=== PATIENT | male | born 1960 | race Caucasian/White ===

== ENCOUNTER 2018-11-04 10:49 | Observation (INO) | payer BC ==
[2018-11-04] MEDS ORDERED: metroNIDAZOLE/Normal Saline 500 MG in Premix Bag 1 BAG IV ONE (11:43)
[2018-11-04] MEDS ORDERED: cefTRIAXone 2 GM in Sodium Chloride 0.9% 100 ML IV SCH (11:45)
[2018-11-04] MEDS ORDERED: Metoclopramide 10 MG/2 ML SDV IVPUSH ONE (11:49)
--- NOTE | 2018-11-04 12:06 | PCM.HP ---
H&P History of Present Illness - General Date of Service: 11/04/18 Admit Problem/Dx: Admission Diagnosis/Problem Admission Diagnosis/Problem Appendicitis Source of Information: Patient, Provider - History of Present Illness Initial Comments - Free Text/Narative: The patient is a 57 y/o gentleman who presents with 5 days of RLQ pain. He was seen by his PCP yesterday, and CT scan was done today revealing findings of acute appendicitis. Lab work done by the PCP reveals elevated WBC with neutrophil predominance and elevated CRP.He has had some loose stools since the CT scan. He denies any fever/chills, any nausea or vomiting, any hematochezia or melena. Right Lower Abdomen Pain Score (Numeric/FACES): 3 - Related Data Allergies/Adverse Reactions: Allergies Allergy/AdvReac Type Severity Reaction Status Date / Time Penicillins Allergy Hives Verified 03/21/16 22:38 Home Medications: Home Meds Aspirin [Ecotrin] 325 mg PO DAILY 03/21/16 [History] Cyanocobalamin (Vitamin B12) [Vitamin B12] 1,000 mcg PO DAILY 03/21/16 [History] Insulin Aspart [Novolog] 15 unit SQ TID 03/21/16 [History] Insulin Detemir [Levemir] 58 unit SUBCUT DAILY 03/21/16 [History] Lisinopril [Zestril] 10 mg PO DAILY 03/21/16 [History] atorvaSTATin [Lipitor] 20 mg PO DAILY 03/21/16 [History] metFORMIN HCl [Metformin HCl] 1,000 mg PO BID 03/21/16 [History] Cholecalciferol (Vitamin D3) [Vitamin D3] 10,000 unit PO DAILY 11/04/18 [History ] Dulaglutide [Trulicity] 1.5 mg INJECT VICENTE 11/04/18 [History] Magnesium 400 mg PO DAILY 11/04/18 [History] Multivitamin [Multivitamins] 1 cap PO DAILY 11/04/18 [History] Past Medical History Cardiovascular History: Reports: High Cholesterol, Hypertension Respiratory History: Reports: PE, Sleep Apnea Endocrine/Metabolic History: Reports: Diabetes, Type II Hematologic History: Reports: Other (See Below) Other Hematologic History: Factor V Leiden - Past Surgical History HEENT Surgical History: Reports: Eye Surgery Social & Family History - Family History Cardiac: Reports: NM Oncologic: Reports: Other (See Below) Other Oncologic Family History: melanoma - Tobacco Use Smoking Status *Q: Never Smoker - Caffeine Use Caffeine Use: Reports: Coffee, Soda, Tea - Recreational Drug Use Recreational Drug Use: No H&P Review of Systems - Review of Systems: Review Of Systems: See Below General: Reports: No Symptoms HEENT: Reports: No Symptoms Pulmonary: Reports: No Symptoms Cardiovascular: Reports: No Symptoms Gastrointestinal: Reports: Abdominal Pain. Denies: Hematochezia, Melena Genitourinary: Reports: No Symptoms Musculoskeletal: Reports: No Symptoms Skin: Reports: No Symptoms Psychiatric: Reports: No Symptoms Neurological: Reports: No Symptoms Exam - Exam Exam: See Below - Vital Signs Vital Signs: Last Vital Signs Temp 36.2 C 11/04/18 11:04 Pulse 103 H 11/04/18 11:04 Resp 20 11/04/18 11:04 BP 152/94 H 11/04/18 11:04 Pulse Ox 96 11/04/18 11:04 Weight: 104.326 kg - Exam Quality Assessment: No: Supplemental Oxygen General: Alert, Oriented HEENT: Conjunctiva Clear, EOMI Neck: Supple Lungs: Clear to Auscultation, Normal Respiratory Effort Cardiovascular: Regular Rate, Regular Rhythm GI/Abdominal Exam: Soft, Guarding (localized), Rebound (in RLQ), Tender (in RLQ) Extremities: Normal Inspection, No Pedal Edema Peripheral Pulses: 2+: Dorsalis Pedis (L), Dorsalis Pedis (R) Skin: Warm, Dry, Intact Neurological: Cranial Nerves Intact Neuro Extensive - Mental Status: Alert, Oriented x3, Normal Mood/Affect *Q Meaningful Use (ADM) - VTE Risk Assess *Q Each Risk Factor Represents 1 Point: Age 41 - 59 years, Minor Surgery Planned Total Score 1 Point Risk Factors: 2 Each Risk Factor Represents 3 Points: Positive factor V Leiden Total Score 3 Point Risk Factors: 3 - Problem List (1) Acute appendicitis SNOMED Code(s): 57913371 ICD Code: K35.80 - UNSPECIFIED ACUTE APPENDICITIS Status: Acute Current Visit: Yes Problem List Initiated/Reviewed/Updated: Yes Orders Last 24hrs: Active Orders 24 hr Category Date Time Status Admission Status [Patient Status] [ADT] Routine ADT 11/04/18 11:46 Active EKG 12 Lead [EKG Documentation Completion] [RC] STAT Care 11/04/18 11:39 Active cefTRIAXone [Rocephin] 2 gm Med 11/04/18 11:45 Active Sodium Chloride 0.9% [Normal Saline] 100 ml IV Q24H metroNIDAZOLE/Normal Saline [Flagyl 500 MG in NS 100 ML Med 11/04/18 11:43 Active ] 500 mg Premix Bag 1 bag IV ONETIME Schedule Procedure [COMM] Routine Oth 11/04/18 11:47 Ordered Medication Orders Ceftriaxone Sodium 2 gm/ (Sodium Chloride) 100 mls @ 200 mls/hr IV Q24H REYNA Metronidazole 500 mg/ Premix 100 mls @ 100 mls/hr IV ONETIME ONE Stop: 11/04/18 12:42 Assessment/Plan Comment:: 57 y/o man with acute appendicitis - plan for laparoscopic appendectomy, possible open - ceftriaxone 2g IV and metronidazole 500mg IV x1 now - will give 5000U subq heparin for history of VTE and known factor V Leiden - plan for admission will be determined by intraoperative findings Rossy Catherine MD General surgery
--- NOTE | 2018-11-04 12:12 | PCM.PREANE ---
Preanesthetic Assessment - Procedure Proposed Procedure: lap appy - Anesthesia/Transfusion/Family Hx Anesthesia History: Prior Anesthesia Without Reaction Family History of Anesthesia Reaction: No Transfusion History: No Prior Transfusion(s) - Review of Systems General: No Symptoms Pulmonary: No Symptoms Cardiovascular: No Symptoms Gastrointestinal: Abdominal Pain (5 days on and off) Neurological: No Symptoms Other: Reports: Diabetes - Physical Assessment NPO Status Date: 11/04/18 NPO Status Time: 10:00 (eggs, ham, toast hash browns coffee) O2 Sat by Pulse Oximetry: 96 Respiratory Rate: 20 Vital Signs: Last Vital Signs Temp 97.2 F 11/04/18 11:04 Pulse 103 H 11/04/18 11:04 Resp 20 11/04/18 11:04 BP 152/94 H 11/04/18 11:04 Pulse Ox 96 11/04/18 11:04 Height: 5 ft 9 in Weight: 104.326 kg ASA Class: 2E Mental Status: Alert & Oriented x3 Airway Class: Mallampati = 2 Dentition: Reports: Broken Tooth/Teeth, Missing Tooth/Teeth Thyro-Mental Finger Breadths: 2 Mouth Opening Finger Breadths: 3 ROM/Head Extension: Full Lungs: Clear to Auscultation, Normal Respiratory Effort Cardiovascular: Regular Rate, Regular Rhythm - Allergies Allergies/Adverse Reactions: Allergies Allergy/AdvReac Type Severity Reaction Status Date / Time Penicillins Allergy Hives Verified 03/21/16 22:38 - Blood Blood Available: No - Acknowledgements Anesthesia Type Planned: General Anesthesia Pt an Appropriate Candidate for the Planned Anesthesia: Yes Alternatives and Risks of Anesthesia Discussed w Pt/Guardian: Yes Pt/Guardian Understands and Agrees with Anesthesia Plan: Yes PreAnesthesia Questionnaire HEENT History: Reports: Other (See Below) (glasses) Cardiovascular History: Reports: High Cholesterol, Hypertension Respiratory History: Reports: PE (2007), Sleep Apnea Gastrointestinal History: Reports: Other (See Below) (gas build up) Endocrine/Metabolic History: Reports: Diabetes, Type II, Obesity/BMI 30+ Oncologic (Cancer) History: Reports: None - Past Surgical History HEENT Surgical History: Reports: Eye Surgery, Tonsillectomy GI Surgical History: Reports: Colonoscopy - SUBSTANCE USE Smoking Status *Q: Never Smoker Tobacco Use Within Last Twelve Months: No Second Hand Smoke Exposure: No Days Per Week of Alcohol Use: 1 Number of Drinks Per Day: 1 Total Drinks Per Week: 1 Recreational Drug Use History: No - HOME MEDS Home Medications: Home Meds Aspirin [Ecotrin] 325 mg PO DAILY 03/21/16 [History] Cyanocobalamin (Vitamin B12) [Vitamin B12] 1,000 mcg PO DAILY 03/21/16 [History] Insulin Aspart [Novolog] 15 unit SQ TID 03/21/16 [History] Insulin Detemir [Levemir] 58 unit SUBCUT DAILY 03/21/16 [History] Lisinopril [Zestril] 10 mg PO DAILY 03/21/16 [History] atorvaSTATin [Lipitor] 20 mg PO DAILY 03/21/16 [History] metFORMIN HCl [Metformin HCl] 1,000 mg PO BID 03/21/16 [History] Cholecalciferol (Vitamin D3) [Vitamin D3] 10,000 unit PO DAILY 11/04/18 [History ] Dulaglutide [Trulicity] 1.5 mg INJECT VICENTE 11/04/18 [History] Magnesium 400 mg PO DAILY 11/04/18 [History] Multivitamin [Multivitamins] 1 cap PO DAILY 11/04/18 [History] - CURRENT (IN HOUSE) MEDS Current Meds: Current Medications Ceftriaxone Sodium 2 gm/ (Sodium Chloride) 100 mls @ 200 mls/hr IV Q24H REYNA Last Admin: 11/04/18 12:00 Dose: 200 mls/hr Metronidazole 500 mg/ Premix 100 mls @ 100 mls/hr IV ONETIME ONE Stop: 11/04/18 12:42 Last Admin: 11/04/18 12:03 Dose: 100 mls/hr Discontinued Medications Metoclopramide HCl (Reglan) 10 mg IVPUSH ONETIME ONE Stop: 11/04/18 11:50 Last Admin: 11/04/18 12:00 Dose: 10 mg
[2018-11-04] MEDS ORDERED: Heparin Sodium 5,000 Units/ML Vial SUBCUT ONE (12:19)
[2018-11-04] MEDS ORDERED: Propofol 200 MG/20 ML SDV ONE (12:24)
[2018-11-04] MEDS ORDERED: fentaNYL 250 MCG/5 ML SDV ONE (12:24)
[2018-11-04] MEDS ORDERED: Midazolam 1 MG/ML 2 ML SDV ONE (12:25)
[2018-11-04] MEDS ORDERED: Succinylcholine/Normal Saline 100 MG/5 ML Syringe ONE (12:26)
[2018-11-04] MEDS ORDERED: Ondansetron 4 MG/2 ML SDV ONE (12:26)
[2018-11-04] MEDS ORDERED: Rocuronium 50 MG/5 ML Vial ONE (12:26)
[2018-11-04] MEDS ORDERED: Lidocaine 1% 4 ML ONE (12:26)
[2018-11-04] MEDS ORDERED: Lidocaine 1% with EPINEPHrine 1:100,000 20 ML MDV ONE (12:27)
[2018-11-04] MEDS ORDERED: Bupivacaine 0.5%/EPINEPHrine 1:200,000 50 ML MDV ONE (12:27)
[2018-11-04] MEDS ORDERED: Neostigmine Methylsulfate 1 MG/ML 5 ML Syringe ONE (12:27)
[2018-11-04] MEDS ORDERED: Levofloxacin/Dextrose 5%-Water 750 MG in Premix Bag 1 BAG IV SCH (12:30)
[2018-11-04] MEDS ORDERED: HYDROmorphone 0.5 MG/0.5 ML Syringe IVPUSH PRN (12:51)
[2018-11-04] MEDS ORDERED: Ondansetron 4 MG/2 ML SDV IVPUSH PRN ×2 (12:51→15:29)
[2018-11-04] MEDS ORDERED: fentaNYL 100 MCG/2 ML SDV IVPUSH PRN (12:51)
[2018-11-04] MEDS ORDERED: HYDROmorphone 0.5 MG/0.5 ML Syringe ONE (13:01)
[2018-11-04] MEDS ORDERED: Acetaminophen/HYDROcodone 325-5 MG Tab PO PRN (14:09)
[2018-11-04] MEDS ORDERED: HYDROmorphone 1 MG/ML Syringe IVPUSH PRN (14:09)
--- NOTE | 2018-11-04 14:19 | PCM.PRNOTE ---
- Free Text/Narrative Note: Operative Report Date of surgery: November 04, 2018 Preoperative diagnosis: acute appendicitis Postoperative diagnosis: same Procedure performed: laparoscopic appendectomy Surgeon: Dr. Rossy Catherine Anesthesia: General Landscape Artist: Richard Mark CRNA Estimated blood loss 10 mL IV fluids: 1000 mL Urine output: 0 Drains and lines: None Findings: . Perforated appendix with localized abscess Pathology: Appendix Indications for procedure: The patient is a 57-year-old male who presented with a five-day history of right lower quadrant abdominal pain. He was originally seen by his primary care provider who ordered the outpatient laboratory work and CT scan. CT resulted findings of acute appendicitis with localized perforation, as well as well as findings on laboratory work of mildly elevated white blood cell count and left shift. He was brought to the emergency department where he was seen and evaluated. He was consented for laparoscopic appendectomy with possible conversion to open. Risks of infection, bleeding, and bowel injury were described. His written consent was obtained. Description of procedure: The patient was taken back to the operating room and placed in supine position on the operating table. SCD boots were in place and functional prior to the start of the procedure. Preoperative antibiotics were administered. The patient had successful induction of general anesthesia and was intubated without difficulty. Pt was then prepped and draped in standard surgical fashion and a timeout was performed. We began by making a 15 mm incision in the infraumbilical skin and deepened down to level of the fascia which was then grasped and incised sharply. We entered the peritoneum and then placed stay sutures of 0 Vicryl on the fascial edges. A 12 mm Blackman port was then placed into the umbilicus and the balloon was inflated. The abdomen was insufflated to 15 mmHg a 5 mm camera was inserted. There was no evidence of any injury created from entry into the abdomen. A TA P block was performed using mixed 1% lidocaine with epinephrine and 0.5% bupivacaine with epinephrine . We then proceeded to place a 5 mm port under direct visualization in the suprapubic midline and an additional 5mm port in the left lower quadrant. The patient was then positioned in Trendelenburg with right side elevated and we proceeded to mobilize the appendix. The appendix was very indurated and firmly adherent to the abdominal wall. The neighboring terminal ileum was also inflamed and had become incorporated with inflammatory adhesion. Blunt dissection was used to separate the appendix away from the surrounding structures. During this time, we did encounter a small localized collection of pus, which was evacuated using the suction. There was no additional fluid in the abdomen. The appendix was then grasped and with blunt dissection was brought into the surgical field. The mesoappendix dissected from the appendix using the LigaSure device. The appendix was then taken with a tissue staple load. The specimen was in place in the Endo Catch bag. We then inspected and suctioned up any blood in the area. There was no active bleeding at the end of this case. The abdomen was then desufflated and the umbilical fascia closed with 0 Vicryl sutures and the stay sutures were tied, effectively closing the umbilical port site. The skin was then reapproximated at all port sites using a 4-0 Monocryl subcutaneous stitch and covered with Dermabond surgical glue. The patient tolerated the procedure. He was extubated and transported to the PACU in stable condition. All sponge and needle counts were correct. I was present and scrubbed for the entirety of the procedure. Rossy Catherine MD General Surgery
--- NOTE | 2018-11-04 14:20 | PCM.OPNOTE ---
- General Post-Op/Procedure Note Date of Surgery/Procedure: 11/04/18 Operative Procedure(s): laparoscopic appendectomy Findings: perforated appendix with localized abscess Pre Op Diagnosis: acute appendicitis Post-Op Diagnosis: acute appendicitis Anesthesia Technique: General ET Tube Primary Surgeon: Rossy Catherine Anesthesia Provider: Richard Mark Pathology: appendix Fluid Replacement, Intraop: 1,000 Output, Urine Amount: 0 EBL in mLs: 10 Complications: none apparent Condition: Good
--- NOTE | 2018-11-04 14:50 | PCM.POSTAN ---
POST ANESTHESIA ASSESSMENT - MENTAL STATUS Mental Status: Alert, Oriented - VITAL SIGNS Pulse Rate: 107 SaO2: 92 Resp Rate: 16 Blood Pressure: 144/99 Temperature: 36.2 C - RESPIRATORY Respiratory Status: Respiratory Rate WNL, Airway Patent, O2 Saturation Stable, Supplemental Oxygen - CARDIOVASCULAR CV Status: Pulse Rate WNL, Blood Pressure Stable - GASTROINTESTINAL GI Status: No Symptoms - PAIN Pain Score: 0 - POST OP HYDRATION Hydration Status: Adequate & Stable
[2018-11-04] MEDS: Heparin Sodium 5,000 Units/ML Vial SUBCUT SCH (20:37)
[2018-11-04] MEDS: Ibuprofen 600 MG Tab PO PRN (20:38)
[2018-11-04] MEDS: metroNIDAZOLE/Normal Saline 500 MG in Premix Bag 1 BAG IV SCH (20:38)
[2018-11-04] MEDS: D5 1/2 NS w/ 20 mEq/L KCl 1,000 ML IV SCH (20:40)
[2018-11-04] MEDS ORDERED: metFORMIN 500 MG Tab PO SCH (21:00)
[2018-11-04] MEDS: Insulin Lispro 100 UNIT/ML 10 ML VIAL SUBCUT SCH (22:23)
[2018-11-05] MEDS: D5 1/2 NS w/ 20 mEq/L KCl 1,000 ML IV SCH (04:43)
[2018-11-05] MEDS: metroNIDAZOLE/Normal Saline 500 MG in Premix Bag 1 BAG IV SCH ×2 (04:44→11:12)
[2018-11-05] MEDS: Heparin Sodium 5,000 Units/ML Vial SUBCUT SCH ×2 (04:45→12:32)
[2018-11-05] MEDS: Ibuprofen 600 MG Tab PO PRN ×2 (04:48→12:33)
[2018-11-05] MEDS ORDERED: Insulin Glarg,Human.Rec.Analog 100 UNIT/ML ML SUBCUT SCH (09:00)
[2018-11-05] MEDS ORDERED: Cholecalciferol (Vitamin D3) 5,000 UNIT Tab PO SCH (09:00)
[2018-11-05] MEDS ORDERED: Lisinopril 10 MG Tab PO SCH (09:00)
[2018-11-05] MEDS ORDERED: Simvastatin 20 MG Tab PO SCH (09:00)
[2018-11-05] MEDS ORDERED: Aspirin 325 MG Tab.EC PO SCH (09:00)
[2018-11-05] MEDS ORDERED: Multivitamins,Therapeutic Tab PO SCH (09:00)
[2018-11-05] MEDS ORDERED: Cyanocobalamin (Vitamin B12) 1,000 MCG Tab PO SCH (09:00)
[2018-11-05] MEDS ORDERED: Magnesium Oxide 400 MG Tab PO SCH (09:00)
[2018-11-05] MEDS: Insulin Lispro 100 UNIT/ML 10 ML VIAL SUBCUT SCH ×2 (09:31→16:05)
[2018-11-05] MEDS ORDERED: cefTRIAXone 2 GM in Sodium Chloride 0.9% 100 ML IV SCH (12:00)
[2018-11-05 13:01] VITALS: BP 134/80
--- NOTE | 2018-11-05 15:49 | PCM.SURGPN ---
- General Info Date of Service: 11/05/18 POD#: 1 Functional Status: Reports: Pain Controlled, Tolerating Diet, Ambulating, Urinating, Other (required straight cath x1 overnight) - Patient Data Vitals - Most Recent: Last Vital Signs Temp 37.5 C 11/05/18 12:23 Pulse 110 H 11/05/18 13:01 Resp 22 H 11/05/18 12:23 BP 134/80 11/05/18 13:01 Pulse Ox 90 L 11/05/18 12:23 Weight - Most Recent: 104.581 kg I&O - Last 24 Hours: Intake & Output 11/05/18 11/05/18 11/05/18 06:59 14:59 22:59 Intake Total 2300 2371 Output Total 1700 1850 Balance 600 521 Lab Results Last 24 Hrs: Laboratory Results - last 24 hr 11/04/18 11/05/18 11/05/18 Range/Units 20:54 06:44 11:08 POC Glucose 268 H 231 H 223 H (70-105) mg/dL Med Orders - Current: Current Medications Hydrocodone Bitart/Acetaminophen (Carmel 325-5 Mg) 1 tab PO Q4H PRN PRN Reason: Pain (moderate 4-6) Aspirin (Ecotrin) 325 mg PO DAILY [facility] Last Admin: 11/05/18 09:29 Dose: 325 mg Cyanocobalamin (Vitamin B12) 1,000 mcg PO DAILY [facility] Last Admin: 11/05/18 09:29 Dose: 1,000 mcg Heparin Sodium (Porcine) (Heparin Sodium) 5,000 units SUBCUT Q8H [facility] Last Admin: 11/05/18 12:32 Dose: 5,000 units Hydromorphone HCl (Dilaudid) 0.5 mg IVPUSH Q3H PRN PRN Reason: Breakthrough Pain Potassium Chloride/Dextrose/Sod Cl (D5 1/2 Ns W/ 20 Meq/L Kcl) 1,000 mls @ 125 mls/hr IV ASDIRECTED [facility] Last Admin: 11/05/18 04:43 Dose: 125 mls/hr Metronidazole 500 mg/ Premix 100 mls @ 100 mls/hr IV Q8H [facility] Stop: 11/06/18 12:59 Last Admin: 11/05/18 11:12 Dose: 100 mls/hr Ceftriaxone Sodium 2 gm/ (Sodium Chloride) 100 mls @ 200 mls/hr IV Q24H [facility] Stop: 11/06/18 12:29 Last Admin: 11/05/18 12:33 Dose: 200 mls/hr Ibuprofen (Motrin) 600 mg PO Q6H PRN PRN Reason: Pain (mild 1-3) Last Admin: 11/05/18 12:33 Dose: 600 mg Insulin Glargine (Lantus) 58 unit SUBCUT DAILY [facility] Last Admin: 11/05/18 09:33 Dose: 58 units Insulin Human Lispro (Humalog) 15 unit SUBCUT TID [facility] Last Admin: 11/05/18 09:31 Dose: 15 units Lisinopril (Prinivil) 10 mg PO DAILY [facility] Last Admin: 11/05/18 09:29 Dose: 10 mg Magnesium Oxide (Magnesium Oxide) 400 mg PO DAILY [facility] Last Admin: 11/05/18 09:29 Dose: 400 mg Metformin HCl (Glucophage) 1,000 mg PO BIDMEALS [facility] Multivitamins (Thera) 1 each PO DAILY [facility] Last Admin: 11/05/18 09:29 Dose: 1 each Ondansetron HCl (Zofran) 4 mg IVPUSH Q6H PRN PRN Reason: Nausea/Vomiting Dulaglutide [ Trulicity] 1.5 Mg Ptom 0 each SUBCUT VICENTE [facility] Simvastatin (Zocor) 20 mg PO DAILY [facility] Last Admin: 11/05/18 09:00 Dose: 20 mg Discontinued Medications Bupivacaine HCl/Epinephrine Bitart (Marcaine 0.5%/Epinephrine 1:200,000) Confirm Administered Dose 50 ml .ROUTE .STK-MED ONE Stop: 11/04/18 12:28 Last Admin: 11/04/18 12:50 Dose: 30 ml Cholecalciferol (Vitamin D3) 10,000 unit PO DAILY [facility] Last Admin: 11/05/18 09:00 Dose: 10,000 unit Fentanyl (Sublimaze) Confirm Administered Dose 250 mcg .ROUTE .STK-MED ONE Stop: 11/04/18 12:25 Fentanyl (Sublimaze) 50 mcg IVPUSH Q5M PRN PRN Reason: Pain Stop: 11/04/18 15:00 Glycopyrrolate () Confirm Administered Dose 1 mg .ROUTE .STK-MED ONE Stop: 11/04/18 12:28 Heparin Sodium (Porcine) (Heparin Sodium) 5,000 units SUBCUT ONETIME ONE Stop: 11/04/18 12:20 Last Admin: 11/04/18 12:28 Dose: 5,000 units Hydromorphone HCl (Dilaudid) 0.5 mg IVPUSH Q10M PRN PRN Reason: Pain (severe 7-10) Stop: 11/04/18 16:00 Hydromorphone HCl (Dilaudid) Confirm Administered Dose 0.5 mg .ROUTE .STK-MED ONE Stop: 11/04/18 13:02 Ceftriaxone Sodium 2 gm/ (Sodium Chloride) 100 mls @ 200 mls/hr IV Q24H [facility] Last Admin: 11/04/18 12:00 Dose: 200 mls/hr Metronidazole 500 mg/ Premix 100 mls @ 100 mls/hr IV ONETIME ONE Stop: 11/04/18 12:42 Last Admin: 11/04/18 12:03 Dose: 100 mls/hr Levofloxacin/Dextrose 750 mg/ (Premix) 150 mls @ 100 mls/hr IV Q24H [facility] Stop: 11/05/18 13:59 Lidocaine HCl (Xylocaine-Mpf 1%) Confirm Administered Dose 4 mls @ as directed .ROUTE .STK-MED ONE Stop: 11/04/18 12:27 Lidocaine/Epinephrine (Xylocaine 1% With Epinephrine 1:100,000) Confirm Administered Dose 40 ml .ROUTE .STK-MED ONE Stop: 11/04/18 12:28 Last Admin: 11/04/18 12:50 Dose: 30 ml Metformin HCl (Glucophage) 1,000 mg PO BID [facility] Last Admin: 11/04/18 20:50 Dose: Not Given Metoclopramide HCl (Reglan) 10 mg IVPUSH ONETIME ONE Stop: 11/04/18 11:50 Last Admin: 11/04/18 12:00 Dose: 10 mg Midazolam HCl (Versed 1 Mg/Ml) Confirm Administered Dose 2 mg .ROUTE .STK-MED ONE Stop: 11/04/18 12:26 Neostigmine Methylsulfate (Neostigmine) Confirm Administered Dose 5 mg .ROUTE .STK-MED ONE Stop: 11/04/18 12:28 Ondansetron HCl (Zofran) Confirm Administered Dose 4 mg .ROUTE .STK-MED ONE Stop: 11/04/18 12:27 Ondansetron HCl (Zofran) 4 mg IVPUSH ONETIME PRN PRN Reason: Nausea/Vomiting Stop: 11/04/18 16:00 Propofol (Diprivan 20 Ml) Confirm Administered Dose 200 mg .ROUTE .STK-MED ONE Stop: 11/04/18 12:25 Rocuronium [place] (Zemuron) Confirm Administered Dose 50 mg .ROUTE .STK-MED ONE Stop: 11/04/18 12:27 Succinylcholine Chloride (Succinylcholine In Ns Pf) Confirm Administered Dose 100 mg .ROUTE .STK-MED ONE Stop: 11/04/18 12:27 - Exam Wound/Incisions: Healing Well, Dressing Dry and Intact, Erythema General: Alert, Oriented Lungs: Normal Respiratory Effort GI/Abdominal Exam: Soft, Tender (appropriately tender in the RLQ) - Problem List & Annotations (1) Acute appendicitis SNOMED Code(s): 49692755 Code(s): K35.80 - UNSPECIFIED ACUTE APPENDICITIS Status: Acute Current Visit: Yes - Problem List Review Problem List Initiated/Reviewed/Updated: Yes - My Orders Last 24 Hours: Active Orders 24 hr Category Date Time Status Ready for Discharge [RC] PER UNIT ROUTINE Care 11/05/18 14:01 Active Urinary Catheter Insertion [Insert Urinary Catheter] [ Care 11/04/18 22:45 Ordered OM.PC] Q24H Regular Diet [DIET] Diet 11/04/18 Dinner Active Aspirin [Ecotrin] Med 11/05/18 09:00 Active 325 mg PO DAILY Cyanocobalamin (Vitamin B12) [Vitamin B12] Med 11/05/18 09:00 Active 1,000 mcg PO DAILY Heparin Sodium Med 11/04/18 20:00 Active 5,000 units SUBCUT Q8H Insulin Glarg,Human.Rec.Analog [LantUS] Med 11/05/18 09:00 Active 58 unit SUBCUT DAILY Insulin Lispro [HumaLOG] Med 11/04/18 21:00 Active 15 unit SUBCUT TID Lisinopril [Prinivil] Med 11/05/18 09:00 Active 10 mg PO DAILY Magnesium Oxide Med 11/05/18 09:00 Active 400 mg PO DAILY Multivitamins,Therapeutic [Thera] Med 11/05/18 09:00 Active 1 each PO DAILY Ondansetron [Zofran] Med 11/04/18 15:29 Active 4 mg IVPUSH Q6H PRN Patient's Own Medication [Ptom] Med 11/08/18 14:16 Active 0 each SUBCUT VICENTE Simvastatin [Zocor] Med 11/05/18 09:00 Active 20 mg PO DAILY cefTRIAXone [Rocephin] 2 gm Med 11/05/18 12:00 Active Sodium Chloride 0.9% [Normal Saline] 100 ml IV Q24H metFORMIN [Glucophage] Med 11/06/18 09:30 Active 1,000 mg PO BIDMEALS metroNIDAZOLE/Normal Saline [Flagyl 500 MG in NS 100 ML Med 11/04/18 20:00 Active ] 500 mg Premix Bag 1 bag IV Q8H Resuscitation Status Routine Resus Stat 11/04/18 16:08 Ordered Medication Orders Hydrocodone Bitart/Acetaminophen (Carmel 325-5 Mg) 1 tab PO Q4H PRN PRN Reason: Pain (moderate 4-6) Aspirin (Ecotrin) 325 mg PO DAILY [facility] Last Admin: 11/05/18 09:29 Dose: 325 mg Cyanocobalamin (Vitamin B12) 1,000 mcg PO DAILY [facility] Last Admin: 11/05/18 09:29 Dose: 1,000 mcg Heparin Sodium (Porcine) (Heparin Sodium) 5,000 units SUBCUT Q8H [facility] Last Admin: 11/05/18 12:32 Dose: 5,000 units Admin: 11/05/18 04:45 Dose: 5,000 units Admin: 11/04/18 20:37 Dose: 5,000 units Hydromorphone HCl (Dilaudid) 0.5 mg IVPUSH Q3H PRN PRN Reason: Breakthrough Pain Potassium Chloride/Dextrose/Sod Cl (D5 1/2 Ns W/ 20 Meq/L Kcl) 1,000 mls @ 125 mls/hr IV ASDIRECTED [facility] Last Admin: 11/05/18 04:43 Dose: 125 mls/hr Infusion: 11/05/18 04:40 Dose: 125 mls/hr Admin: 11/04/18 20:40 Dose: 125 mls/hr Metronidazole 500 mg/ Premix 100 mls @ 100 mls/hr IV Q8H [facility] Stop: 11/06/18 12:59 Last Admin: 11/05/18 11:12 Dose: 100 mls/hr Infusion: 11/05/18 05:44 Dose: 100 mls/hr Admin: 11/05/18 04:44 Dose: 100 mls/hr Infusion: 11/04/18 21:38 Dose: 100 mls/hr Admin: 11/04/18 20:38 Dose: 100 mls/hr Ceftriaxone Sodium 2 gm/ (Sodium Chloride) 100 mls @ 200 mls/hr IV Q24H [facility] Stop: 11/06/18 12:29 Last Admin: 11/05/18 12:33 Dose: 200 mls/hr Ibuprofen (Motrin) 600 mg PO Q6H PRN PRN Reason: Pain (mild 1-3) Last Admin: 11/05/18 12:33 Dose: 600 mg Admin: 11/05/18 04:48 Dose: 600 mg Admin: 11/04/18 20:38 Dose: 600 mg Insulin Glargine (Lantus) 58 unit SUBCUT DAILY [facility] Last Admin: 11/05/18 09:33 Dose: 58 units Insulin Human Lispro (Humalog) 15 unit SUBCUT TID [facility] Last Admin: 11/05/18 09:31 Dose: 15 units Admin: 11/04/18 22:23 Dose: 15 units Lisinopril (Prinivil) 10 mg PO DAILY [facility] Last Admin: 11/05/18 09:29 Dose: 10 mg Magnesium Oxide (Magnesium Oxide) 400 mg PO DAILY [facility] Last Admin: 11/05/18 09:29 Dose: 400 mg Metformin HCl (Glucophage) 1,000 mg PO BIDMEALS [facility] Multivitamins (Thera) 1 each PO DAILY [facility] Last Admin: 11/05/18 09:29 Dose: 1 each Ondansetron HCl (Zofran) 4 mg IVPUSH Q6H PRN PRN Reason: Nausea/Vomiting Dulaglutide [ Trulicity] 1.5 Mg Ptom 0 each SUBCUT VICENTE [facility] Simvastatin (Zocor) 20 mg PO DAILY [facility] Last Admin: 11/05/18 09:00 Dose: 20 mg - Assessment Assessment (Free Text/Narrative):: 57-year-old male with perforated appendicitis, now postop day 1 status post laparoscopic appendectomy. Doing well - Plan Plan (Free Text/Narrative):: - Patient kept In observation to receive extra IV antibiotics. - Tolerating by mouth, continue regular diet - Continue home medication regimen - Discharge home with follow-up in 2 weeks Rossy Catherine MD General Surgery
--- NOTE | 2018-11-05 15:51 | PCM.DCSUM1 ---
Discharge Summary - Hospital Course Free Text/Narrative:: Patient was admitted with acute appendicitis, found to be ruptured. Underwent an uneventful laparoscopic appendectomy. He had mild urinary retention postoperatively which resolved. He was doing well. The morning of postoperative day 1. He was discharged home Diagnosis: Stroke: No Modified Drake Scale: No Signif.Disability Despite Sympt.Able to Carry Out Usual Act./Duties Modified Drake Scale Score: 1 - Discharge Data Discharge Date: 11/05/18 Discharge Disposition: Home, Self-Care 01 Condition: Good - Discharge Diagnosis/Problem(s) (1) Acute appendicitis SNOMED Code(s): 01152162 ICD Code: K35.80 - UNSPECIFIED ACUTE APPENDICITIS Status: Acute Current Visit: Yes - Patient Summary/Data Operative Procedure(s) Performed: laparoscopic appendectomy - Patient Instructions Diet: Usual Diet as Tolerated Activity: As Tolerated, No Lifting Over 20 Pounds (for 2 weeks), No Strenuous Activities (for 2 weeks) Showering/Bathing: May Shower, No Tub Bathing/Swimming (for 2 weeks) Notify Provider of: Fever, Increased Pain, Swelling and Redness, Drainage, Nausea and/or Vomiting - Discharge Plan *PRESCRIPTION DRUG MONITORING PROGRAM REVIEWED*: Not Applicable *COPY OF PRESCRIPTION DRUG MONITORING REPORT IN PATIENT SANDRA: Not Applicable Prescriptions/Med Rec: Acetaminophen/HYDROcodone [[place] 325-5 MG] 1 tab PO Q4H PRN 14 Days #40 tablet PRN Reason: Pain (Moderate 4-6) Docusate Sodium [Colace] 100 mg PO BID 20 Days #40 cap Ibuprofen [Motrin] 600 mg PO Q6H PRN 20 Days #120 tablet PRN Reason: Pain (Mild 1-3) Home Medications: Home Meds Aspirin [Ecotrin] 325 mg PO DAILY 03/21/16 [History] Cyanocobalamin (Vitamin B12) [Vitamin B12] 1,000 mcg PO DAILY 03/21/16 [History] Insulin Aspart [Novolog Flexpen] 15 unit SQ TID 03/21/16 [History] Insulin Detemir [Levemir] 58 unit SUBCUT DAILY 03/21/16 [History] Lisinopril [Zestril] 10 mg PO DAILY 03/21/16 [History] atorvaSTATin [Lipitor] 20 mg PO DAILY 03/21/16 [History] metFORMIN HCl [Metformin HCl] 1,000 mg PO BID 03/21/16 [History] Cholecalciferol (Vitamin D3) [Vitamin D3] 10,000 unit PO DAILY 11/04/18 [History ] Dulaglutide [Trulicity] 1.5 mg INJECT VICENTE 11/04/18 [History] Magnesium 400 mg PO DAILY 11/04/18 [History] Multivitamin [Multivitamins] 1 cap PO DAILY 11/04/18 [History] Acetaminophen/HYDROcodone [[place] 325-5 MG] 1 tab PO Q4H PRN 14 Days #40 tablet 11/05/18 [Rx] Docusate Sodium [Colace] 100 mg PO BID 20 Days #40 cap 11/05/18 [Rx] Ibuprofen [Motrin] 600 mg PO Q6H PRN 20 Days #120 tablet 11/05/18 [Rx] Patient Handouts: Laparoscopic Appendectomy, Adult, Care After Referrals: Ambika Wright MD [Primary Care Provider] - (Update your primary care provider and follow-up with her as needed.) Kamilla Wheeler NP [Nurse Practitioner] - 11/19/18 1:30 pm (Follow-up appointment with Kamilla Wheeler NP on November 19 @ 1:30pm @ [facility].) - Discharge Summary/Plan Comment DC Time >30 min.: No - Patient Data Vitals - Most Recent: Last Vital Signs Temp 37.5 C 11/05/18 12:23 Pulse 110 H 11/05/18 13:01 Resp 22 H 11/05/18 12:23 BP 134/80 11/05/18 13:01 Pulse Ox 90 L 11/05/18 12:23 Weight - Most Recent: 104.581 kg I&O - Last 24 hours: Intake & Output 11/05/18 11/05/18 11/05/18 06:59 14:59 22:59 Intake Total 2300 2371 Output Total 1700 1850 Balance 600 521 Lab Results - Last 24 hrs: Laboratory Results - last 24 hr 11/04/18 11/05/18 11/05/18 Range/Units 20:54 06:44 11:08 POC Glucose 268 H 231 H 223 H (70-105) mg/dL Med Orders - Current: Current Medications Hydrocodone Bitart/Acetaminophen ([place] 325-5 Mg) 1 tab PO Q4H PRN PRN Reason: Pain (moderate 4-6) Aspirin (Ecotrin) 325 mg PO DAILY [facility] Last Admin: 11/05/18 09:29 Dose: 325 mg Cyanocobalamin (Vitamin B12) 1,000 mcg PO DAILY [facility] Last Admin: 11/05/18 09:29 Dose: 1,000 mcg Heparin Sodium (Porcine) (Heparin Sodium) 5,000 units SUBCUT Q8H [facility] Last Admin: 11/05/18 12:32 Dose: 5,000 units Hydromorphone HCl (Dilaudid) 0.5 mg IVPUSH Q3H PRN PRN Reason: Breakthrough Pain Potassium Chloride/Dextrose/Sod Cl (D5 1/2 Ns W/ 20 Meq/L Kcl) 1,000 mls @ 125 mls/hr IV ASDIRECTED [facility] Last Admin: 11/05/18 04:43 Dose: 125 mls/hr Metronidazole 500 mg/ Premix 100 mls @ 100 mls/hr IV Q8H [facility] Stop: 11/06/18 12:59 Last Admin: 11/05/18 11:12 Dose: 100 mls/hr Ceftriaxone Sodium 2 gm/ (Sodium Chloride) 100 mls @ 200 mls/hr IV Q24H [facility] Stop: 11/06/18 12:29 Last Admin: 11/05/18 12:33 Dose: 200 mls/hr Ibuprofen (Motrin) 600 mg PO Q6H PRN PRN Reason: Pain (mild 1-3) Last Admin: 11/05/18 12:33 Dose: 600 mg Insulin Glargine (Lantus) 58 unit SUBCUT DAILY [facility] Last Admin: 11/05/18 09:33 Dose: 58 units Insulin Human Lispro (Humalog) 15 unit SUBCUT TID [facility] Last Admin: 11/05/18 09:31 Dose: 15 units Lisinopril (Prinivil) 10 mg PO DAILY [facility] Last Admin: 11/05/18 09:29 Dose: 10 mg Magnesium Oxide (Magnesium Oxide) 400 mg PO DAILY [facility] Last Admin: 11/05/18 09:29 Dose: 400 mg Metformin HCl (Glucophage) 1,000 mg PO BIDMEALS [facility] Multivitamins (Thera) 1 each PO DAILY [facility] Last Admin: 11/05/18 09:29 Dose: 1 each Ondansetron HCl (Zofran) 4 mg IVPUSH Q6H PRN PRN Reason: Nausea/Vomiting Dulaglutide [ Trulicity] 1.5 Mg Ptom 0 each SUBCUT VICENTE [facility] Simvastatin (Zocor) 20 mg PO DAILY [facility] Last Admin: 11/05/18 09:00 Dose: 20 mg Discontinued Medications Bupivacaine HCl/Epinephrine Bitart (Marcaine 0.5%/Epinephrine 1:200,000) Confirm Administered Dose 50 ml .ROUTE .STK-MED ONE Stop: 11/04/18 12:28 Last Admin: 11/04/18 12:50 Dose: 30 ml Cholecalciferol (Vitamin D3) 10,000 unit PO DAILY [facility] Last Admin: 11/05/18 09:00 Dose: 10,000 unit Fentanyl (Sublimaze) Confirm Administered Dose 250 mcg .ROUTE .STK-MED ONE Stop: 11/04/18 12:25 Fentanyl (Sublimaze) 50 mcg IVPUSH Q5M PRN PRN Reason: Pain Stop: 11/04/18 15:00 Glycopyrrolate () Confirm Administered Dose 1 mg .ROUTE .STK-MED ONE Stop: 11/04/18 12:28 Heparin Sodium (Porcine) (Heparin Sodium) 5,000 units SUBCUT ONETIME ONE Stop: 11/04/18 12:20 Last Admin: 11/04/18 12:28 Dose: 5,000 units Hydromorphone HCl (Dilaudid) 0.5 mg IVPUSH Q10M PRN PRN Reason: Pain (severe 7-10) Stop: 11/04/18 16:00 Hydromorphone HCl (Dilaudid) Confirm Administered Dose 0.5 mg .ROUTE .STK-MED ONE Stop: 11/04/18 13:02 Ceftriaxone Sodium 2 gm/ (Sodium Chloride) 100 mls @ 200 mls/hr IV Q24H [facility] Last Admin: 11/04/18 12:00 Dose: 200 mls/hr Metronidazole 500 mg/ Premix 100 mls @ 100 mls/hr IV ONETIME ONE Stop: 11/04/18 12:42 Last Admin: 11/04/18 12:03 Dose: 100 mls/hr Levofloxacin/Dextrose 750 mg/ (Premix) 150 mls @ 100 mls/hr IV Q24H [facility] Stop: 11/05/18 13:59 Lidocaine HCl (Xylocaine-Mpf 1%) Confirm Administered Dose 4 mls @ as directed .ROUTE .STK-MED ONE Stop: 11/04/18 12:27 Lidocaine/Epinephrine (Xylocaine 1% With Epinephrine 1:100,000) Confirm Administered Dose 40 ml .ROUTE .STK-MED ONE Stop: 11/04/18 12:28 Last Admin: 11/04/18 12:50 Dose: 30 ml Metformin HCl (Glucophage) 1,000 mg PO BID [facility] Last Admin: 11/04/18 20:50 Dose: Not Given Metoclopramide HCl (Reglan) 10 mg IVPUSH ONETIME ONE Stop: 11/04/18 11:50 Last Admin: 11/04/18 12:00 Dose: 10 mg Midazolam HCl (Versed 1 Mg/Ml) Confirm Administered Dose 2 mg .ROUTE .STK-MED ONE Stop: 11/04/18 12:26 Neostigmine Methylsulfate (Neostigmine) Confirm Administered Dose 5 mg .ROUTE .STK-MED ONE Stop: 11/04/18 12:28 Ondansetron HCl (Zofran) Confirm Administered Dose 4 mg .ROUTE .STK-MED ONE Stop: 11/04/18 12:27 Ondansetron HCl (Zofran) 4 mg IVPUSH ONETIME PRN PRN Reason: Nausea/Vomiting Stop: 11/04/18 16:00 Propofol (Diprivan 20 Ml) Confirm Administered Dose 200 mg .ROUTE .STK-MED ONE Stop: 11/04/18 12:25 Rocuronium [place] (Zemuron) Confirm Administered Dose 50 mg .ROUTE .STK-MED ONE Stop: 11/04/18 12:27 Succinylcholine Chloride (Succinylcholine In Ns Pf) Confirm Administered Dose 100 mg .ROUTE .STK-MED ONE Stop: 11/04/18 12:27
[2018-11-06] MEDS ORDERED: metFORMIN 500 MG Tab PO SCH (09:30)
[2018-11-08] MEDS ORDERED: Dulaglutide [Trulicity] 1.5 MG **PTOM SUBCUT SCH (14:16)
== END 2018-11-05 14:38 | disposition home or self-care (01) ==
LOC: JD.ED 10:49 → JD.SDS 12:09 → JD.MS 14:09
PROVIDERS: ADMIT Surgery; ATTEND Surgery
DX: K35.33 Acute appendicitis with perforation, localized peritonitis, and gangrene, with abscess (principal); I10 Essential (primary) hypertension; E10.9 Type 1 diabetes mellitus without complications; E66.9 Obesity, unspecified; Z68.34 Body mass index [BMI] 34.0-34.9, adult; G47.30 Sleep apnea, unspecified; E78.00 Pure hypercholesterolemia, unspecified; D68.51 Activated protein C resistance; Z79.4 Long term (current) use of insulin; Z79.82 Long term (current) use of aspirin; Z79.899 Other long term (current) drug therapy; Z88.0 Allergy status to penicillin
CPT/HCPCS: 44970; 51701; 51798; 82962; 93005; 99285; A9270; G0378; J0330; J0696; J1170; J1644; J2001; J2250; J2405; J2704; J2710; J2765; J3010; J3480; J3490; J7030; 00840

== ENCOUNTER 2019-02-03 07:59 | Day surgery (SDC) | payer BC ==
[~2019-02-03 07:59] MED LIST: Lactated Ringers 1,000 ML IV SCH; Lidocaine 1%/Sod Bicarbonate in NS 8.4% 1 ML Syringe IDERM PRN; Sodium Chloride 0.9% 10 ML Syringe FLUSH PRN
--- NOTE | 2019-02-03 08:23 | PCM.PREANE ---
Preanesthetic Assessment - Procedure Proposed Procedure: screening colonoscopy - Anesthesia/Transfusion/Family Hx Anesthesia History: Prior Anesthesia Without Reaction Family History of Anesthesia Reaction: No Transfusion History: No Prior Transfusion(s) - Review of Systems General: No Symptoms Pulmonary: No Symptoms Cardiovascular: No Symptoms Gastrointestinal: No Symptoms Neurological: No Symptoms, Tingling (both feet) Other: Reports: Diabetes - Physical Assessment NPO Status Date: 02/03/19 NPO Status Time: 05:00 (finished prep) Pulse: 97 O2 Sat by Pulse Oximetry: 90 Respiratory Rate: 20 Blood Pressure: 145/91 Temperature: 97.4 F Height: 5 ft 9 in Weight: 101 kg ASA Class: 2 Mental Status: Alert & Oriented x3 Airway Class: Mallampati = 2 Dentition: Reports: Normal Dentition Thyro-Mental Finger Breadths: 2 Mouth Opening Finger Breadths: 3 ROM/Head Extension: Full Lungs: Clear to Auscultation, Normal Respiratory Effort Cardiovascular: Regular Rate, Regular Rhythm - Allergies Allergies/Adverse Reactions: Allergies Allergy/AdvReac Type Severity Reaction Status Date / Time Penicillins Allergy Hives Verified 02/02/19 13:45 - Blood Blood Available: No - Acknowledgements Anesthesia Type Planned: MAC Pt an Appropriate Candidate for the Planned Anesthesia: Yes Alternatives and Risks of Anesthesia Discussed w Pt/Guardian: Yes Pt/Guardian Understands and Agrees with Anesthesia Plan: Yes PreAnesthesia Questionnaire HEENT History: Reports: None Other HEENT History: glasses Cardiovascular History: Reports: High Cholesterol, Hypertension Other Cardiovascular History: Abnormal EKG, hypomagnesemia, history of chest pain Respiratory History: Reports: PE, Sleep Apnea, Other (See Below) Other Respiratory History: Acute bronchitis Gastrointestinal History: Reports: Other (See Below) (gas build up) Other Gastrointestinal History: Acute RLQ pain, LUQ pain Genitourinary History: Reports: None Musculoskeletal History: Reports: Fracture Other Musculoskeletal History: Muscle cramps, closed fracture one rib on left side Neurological History: Reports: Other (See Below) Other Neuro History: Tingling of both feet Psychiatric History: Reports: None Other Psychiatric History: Insomnia Endocrine/Metabolic History: Reports: Diabetes, Type II, Obesity/BMI 30+, Vitamin D Deficiency Other Endocrine/Metabolic History: Fatigue Hematologic History: Reports: None Other Hematologic History: Factor V Leiden Immunologic History: Reports: None Oncologic (Cancer) History: Reports: None Other Dermatologic History: Skin lesion left leg - Infectious Disease History Infectious Disease History: Reports: Chicken Pox, Measles - Past Surgical History Head Surgeries/Procedures: Reports: None HEENT Surgical History: Reports: Tonsillectomy Other HEENT Surgeries/Procedures: Correction of left lazy eye at 4 years old Cardiovascular Surgical History: Reports: None Respiratory Surgical History: Reports: None GI Surgical History: Reports: Appendectomy, Colonoscopy Other GI Surgeries/Procedures: Ventral hernia repair Male Surgical History: Reports: None Endocrine Surgical History: Reports: None Neurological Surgical History: Reports: None Musculoskeletal Surgical History: Reports: None Dermatological Surgical History: Reports: None - SUBSTANCE USE Smoking Status *Q: Never Smoker Tobacco Use Within Last Twelve Months: No Second Hand Smoke Exposure: No Days Per Week of Alcohol Use: 1 (occasional) Recreational Drug Use History: No - HOME MEDS Home Medications: Home Meds Aspirin [Ecotrin] 325 mg PO DAILY 03/21/16 [History] Insulin Aspart [Novolog Flexpen] 22 unit SQ TID 03/21/16 [History] Insulin Detemir [Levemir] 58 unit SUBCUT BID 03/21/16 [History] Dulaglutide [Trulicity] 1.5 mg INJECT VICENTE 11/04/18 [History] Multivitamin [Multivitamins] 1 cap PO DAILY 11/04/18 [History] Cholecalciferol (Vitamin D3) [Vitamin D3] 10,000 unit PO DAILY 02/02/19 [History ] Cyanocobalamin (Vitamin B12) [Vitamin B13] 500 mcg PO DAILY 02/02/19 [History] Fenofibric Acid (Choline) [Fenofibric Acid] 45 mg PO DAILY 02/02/19 [History] Lisinopril/Hydrochlorothiazide [Lisinopril-Hctz 20-12.5 mg Tab] 1 tab PO DAILY 02/02/19 [History] Magnesium 250 mg PO DAILY 02/02/19 [History] atorvaSTATin [Lipitor] 80 mg PO DAILY 02/02/19 [History] traZODone HCl [Trazodone HCl] 50 - 100 mg PO BEDTIME PRN 02/02/19 [History] - CURRENT (IN HOUSE) MEDS Current Meds: Current Medications Lactated Ringer's (Ringers, Lactated) 1,000 mls @ 125 mls/hr IV ASDIRECTED [facility] Stop: 02/03/19 23:00 Lidocaine/Sodium Bicarbonate (Buffered Lidocaine 1% In Ns 8.4%) 0.25 ml IDERM ONETIME PRN PRN Reason: Prior to IV Start Stop: 02/03/19 18:00 Sodium Chloride (Saline Flush) 10 ml FLUSH ASDIRECTED PRN PRN Reason: Keep Vein Open Stop: 02/03/19 18:00
[2019-02-03] MEDS ORDERED: Midazolam 1 MG/ML 2 ML SDV ONE (09:08)
[2019-02-03] MEDS ORDERED: Propofol 200 MG/20 ML SDV ONE ×2 (09:09→09:40)
--- NOTE | 2019-02-03 10:02 | PCM.POSTAN ---
POST ANESTHESIA ASSESSMENT - MENTAL STATUS Mental Status: Alert - RESPIRATORY Respiratory Status: Respiratory Rate WNL, Airway Patent, O2 Saturation Stable - CARDIOVASCULAR CV Status: Pulse Rate WNL - GASTROINTESTINAL GI Status: No Symptoms - POST OP HYDRATION Hydration Status: Adequate & Stable
--- NOTE | 2019-02-03 10:02 | PCM.POSTAN ---
POST ANESTHESIA ASSESSMENT - RESPIRATORY Respiratory Status: Respiratory Rate WNL, Airway Patent, O2 Saturation Stable - CARDIOVASCULAR CV Status: Pulse Rate WNL - GASTROINTESTINAL GI Status: No Symptoms - POST OP HYDRATION Hydration Status: Adequate & Stable
--- NOTE | 2019-02-03 10:03 | PCM48HPAN ---
Post Anesthesia Note - EVALUATION WITHIN 48HRS OF ANESTHETIC Airway Patent: Yes Cardiovascular Function Stable: Yes Hydration Status Stable: Yes Pain Control Satisfactory: Yes Nausea and Vomiting Control Satisfactory: Yes Pulse Rate: 97 Resp Rate: 20 Temperature: 36.3 C Blood Pressure: 145/91
--- NOTE | 2019-02-03 10:40 | OR ---
DATE OF OPERATION: 02/03/2019 SURGEON: Xavi Javier MD PREOPERATIVE DIAGNOSIS: Colorectal cancer screening. POSTOPERATIVE DIAGNOSIS: 1. Colorectal cancer screening. 2. Colon polyps. OPERATION PERFORMED: Average-risk colonoscopy. FINDINGS: He had 2 diminutive polyps, which appeared hyperplastic in nature in the upper rectum. He had an excellent bowel prep. The remainder of his colonoscopy was unremarkable. PATHOLOGY: Upper rectal polyps x2. ANESTHESIA: Procedural sedation. ESTIMATED BLOOD LOSS: Minimal. COMPLICATIONS: None. DISPOSITION: Stable at the end of the procedure. INDICATION: The patient is a 58-year-old male, who was referred to my office for screening colonoscopy. He was fully informed of the major risks, benefits, and alternatives. Please see the H and P for further details of that discussion. He gave informed consent both in my office and on the day of the procedure. DESCRIPTION OF PROCEDURE: The patient was brought to the gastro suite and placed in the left lateral decubitus position. He was given monitored anesthesia. I performed a digital rectal exam. This was unremarkable. With copious lubrication, I introduced the colonoscope into the rectum. I advanced the scope with gentle forward pressure, keeping the lumen in view at all times. When I encountered the cecum, I documented it photographically for the chart. I slowly investigated the mucosa of the colon from the cecum back to the anus in an exam lasting 10 minutes. A thorough, careful examination of the mucosa of the colon in its entirety demonstrated only 2 polyps. There was no diverticulosis. I found no other mucosal lesions. These 2 polyps were removed in their entirety with the biopsy forceps. He had minimal blood loss. At the end of the procedure, the scope was withdrawn. He was awakened by anesthesia and moved to the recovery in stable condition. PLAN: I will see him in the office in 2 weeks to discuss results of the pathology. If the pathology is confirmed that these are hyperplastic in nature, then a 10-year followup is adequate. ANIRUDH /[id number]
[2019-02-03 10:44] VITALS: BP 124/78
== END 2019-02-03 10:45 | disposition home or self-care (01) ==
LOC: JD.SDS 07:59
PROVIDERS: ATTEND Surgery
DX: Z12.11 Encounter for screening for malignant neoplasm of colon (principal); K62.1 Rectal polyp; I10 Essential (primary) hypertension; E11.9 Type 2 diabetes mellitus without complications; E78.00 Pure hypercholesterolemia, unspecified; E55.9 Vitamin D deficiency, unspecified; E66.9 Obesity, unspecified; Z68.36 Body mass index [BMI] 36.0-36.9, adult; Z88.0 Allergy status to penicillin; Z86.010 Personal history of colon polyps; Z79.82 Long term (current) use of aspirin; Z79.4 Long term (current) use of insulin; Z79.899 Other long term (current) drug therapy
CPT/HCPCS: 00812; 82962; J2250; J2704; J7120

== ENCOUNTER 2019-07-01 04:36 | Emergency (ER) | payer BC ==
[2019-07-01 04:47] VITALS: BP 135/93; PULSE 102
--- NOTE | 2019-07-01 06:58 | EDM.PDOC ---
<Linden Taylor - Last Filed: 07/01/19 06:53> ED HPI GENERAL MEDICAL PROBLEM - General Chief Complaint: Lower Extremity Injury/Pain Stated Complaint: SWOLLEN KNEE Time Seen by Provider: 07/01/19 04:53 Source of Information: Reports: Patient History Limitations: Reports: No Limitations - History of Present Illness INITIAL COMMENTS - FREE TEXT/NARRATIVE: 58 y/o M with hx Factor V Leiden, remote hx of DVT no longer on anticoagulation , presents with LLE pain/swelling x 1 wk. No provoking factor. He is on his feet a lot at work. He also noticed a bump on the inner surface of his L leg that is mildly painful so decided to get it checked out. Pain is mild-moderate, no provoking/relieving factors. No known injury. No CP/SOB. No fever. Otherwise feels well. Left Lower Leg Pain Score (Numeric/FACES): 5 - Related Data Allergies Allergy/AdvReac Type Severity Reaction Status Date / Time Penicillins Allergy Hives Verified 07/01/19 04:43 Home Meds: Home Meds Aspirin [Ecotrin] 325 mg PO DAILY 03/21/16 [History] Insulin Aspart [Novolog Flexpen] 22 unit SQ TID 03/21/16 [History] Insulin Detemir [Levemir] 58 unit SUBCUT BID 03/21/16 [History] Dulaglutide [Trulicity] 1.5 mg INJECT [facility] 11/04/18 [History] Multivitamin [Multivitamins] 1 cap PO DAILY 11/04/18 [History] Cholecalciferol (Vitamin D3) [Vitamin D3] 10,000 unit PO DAILY 02/02/19 [History ] Cyanocobalamin (Vitamin B12) [Vitamin B13] 500 mcg PO DAILY 02/02/19 [History] Fenofibric Acid (Choline) [Fenofibric Acid] 45 mg PO DAILY 02/02/19 [History] Lisinopril/Hydrochlorothiazide [Lisinopril-Hctz 20-12.5 mg Tab] 1 tab PO DAILY 02/02/19 [History] Magnesium 250 mg PO DAILY 02/02/19 [History] atorvaSTATin [Lipitor] 80 mg PO DAILY 02/02/19 [History] traZODone HCl [Trazodone HCl] 50 - 100 mg PO BEDTIME PRN 02/02/19 [History] Past Medical History HEENT History: Reports: None Other HEENT History: glasses Cardiovascular History: Reports: High Cholesterol, Hypertension Other Cardiovascular History: Abnormal EKG, hypomagnesemia, history of chest pain Respiratory History: Reports: PE, Sleep Apnea, Other (See Below) Other Respiratory History: Acute bronchitis Gastrointestinal History: Reports: Other (See Below) Other Gastrointestinal History: Acute RLQ pain, LUQ pain Genitourinary History: Reports: None Musculoskeletal History: Reports: Fracture Other Musculoskeletal History: Muscle cramps, closed fracture one rib on left side Neurological History: Reports: Other (See Below) Other Neuro History: Tingling of both feet Psychiatric History: Reports: None Other Psychiatric History: Insomnia Endocrine/Metabolic History: Reports: Diabetes, Type II, Obesity/BMI 30+, Vitamin D Deficiency Other Endocrine/Metabolic History: Fatigue Hematologic History: Reports: None Other Hematologic History: Factor V Leiden Immunologic History: Reports: None Oncologic (Cancer) History: Reports: None Other Dermatologic History: Skin lesion left leg - Infectious Disease History Infectious Disease History: Reports: Chicken Pox, Measles - Past Surgical History Head Surgeries/Procedures: Reports: None HEENT Surgical History: Reports: Tonsillectomy Other HEENT Surgeries/Procedures: Correction of left lazy eye at 4 years old Cardiovascular Surgical History: Reports: None Respiratory Surgical History: Reports: None GI Surgical History: Reports: Appendectomy, Colonoscopy Other GI Surgeries/Procedures: Ventral hernia repair Male Surgical History: Reports: None Endocrine Surgical History: Reports: None Neurological Surgical History: Reports: None Musculoskeletal Surgical History: Reports: None Dermatological Surgical History: Reports: None Social & Family History - Family History Family Medical History: Noncontributory Cardiac: Reports: [place] Oncologic: Reports: Other (See Below) Other Oncologic Family History: melanoma - Tobacco Use Smoking Status *Q: Never Smoker - Caffeine Use Caffeine Use: Reports: Soda - Recreational Drug Use Recreational Drug Use: No Review of Systems - Review of Systems Review Of Systems: See Below Constitutional: Denies: Fever Eyes: Reports: No Symptoms Ears: Reports: No Symptoms Nose: Reports: No Symptoms Mouth/Throat: Reports: No Symptoms Respiratory: Denies: Shortness of Breath Cardiovascular: Denies: Chest Pain GI/Abdominal: Reports: No Symptoms Musculoskeletal: Reports: Leg Pain Skin: Reports: Rash Neurological: Reports: No Symptoms ED EXAM, GENERAL - Physical Exam Exam: See Below Exam Limited By: No Limitations General Appearance: Alert, WD/WN, No Apparent Distress Eye Exam: Bilateral Eye: Normal Inspection Ears: Normal External Exam Nose: Normal Inspection Throat/Mouth: Normal Inspection, Normal Voice Head: Atraumatic, Normocephalic Neck: Normal Inspection, Supple Respiratory/Chest: No Respiratory Distress, Lungs Clear, Normal Breath Sounds Cardiovascular: Normal Peripheral Pulses, Regular Rate, Rhythm Extremities: Other (LLE: No knee effusion. +medial knee area has a nodular superficial vein that is tender, no erythema/fluctuance. LLE anterior pretibial surface is mildly erythematous but not warm or tender. +mild calf TTP, minimally swollen compared to R. Distal motor/perfusion intact. ) Course - Vital Signs Last Recorded V/S: Last Vital Signs Temp 97.2 F 07/01/19 04:45 Pulse 102 H 07/01/19 04:45 Resp 18 07/01/19 04:45 BP 135/93 H 07/01/19 04:45 Pulse Ox 93 L 07/01/19 04:45 - Re-Assessments/Exams Free Text/Narrative Re-Assessment/Exam: 07/01/19 06:[address] Castorena pending venous doppler to r/u DVT. Departure - Departure Disposition: Home, Self-Care 01 Clinical Impression: Left leg pain - Discharge Information Referrals: Ambika Wright MD [Primary Care Provider] - 2 Weeks Forms: ED Department Discharge Additional Instructions: Take tylenol or motrin for pain. Please return if you are worse. <Scott Castorena - Last Filed: 07/01/19 08:10> Course - Re-Assessments/Exams Free Text/Narrative Re-Assessment/Exam: 07/01/19 08:[address] Taylor. The US shows no evidence of deep venous thrombosis within the left lower extremity or within the right common femoral vein. I will discharge him home. Departure - Departure Time of Disposition: 08:10 Condition: Good - Discharge Information *PRESCRIPTION DRUG MONITORING PROGRAM REVIEWED*: No *COPY OF PRESCRIPTION DRUG MONITORING REPORT IN PATIENT SANDRA: No
--- NOTE | 2019-07-01 07:55 | US ---
Left lower extremity deep venous ultrasound: Duplex and color flow imaging was obtained of the left common femoral, proximal greater saphenous, superficial femoral, popliteal, posterior tibial and peroneal veins. Right common femoral vein was also evaluated. Comparison: No prior venous imaging. Findings: Normal phasic flow, augmentation and compression is seen. Impression: 1. No evidence of deep venous thrombosis within the left lower extremity or within the right common femoral vein. Diagnostic code #1
== END 2019-07-01 08:19 | disposition home or self-care (01) ==
LOC: JD.ED 04:36
DX: M79.605 Pain in left leg (principal); E78.00 Pure hypercholesterolemia, unspecified; I10 Essential (primary) hypertension; E11.9 Type 2 diabetes mellitus without complications; E66.9 Obesity, unspecified; Z79.82 Long term (current) use of aspirin; Z88.0 Allergy status to penicillin; Z86.711 Personal history of pulmonary embolism; Z86.718 Personal history of other venous thrombosis and embolism; Z79.4 Long term (current) use of insulin; Z79.899 Other long term (current) drug therapy
CPT/HCPCS: 93971-26-LT; 93971-LT; 99282; 99283-25

== ENCOUNTER → 2020-08-31 | Day surgery (SDC) | payer BC ==
[~2020-08-31] MED LIST changes: +Lidocaine 1% 4 ML ONE; +Propofol 200 MG/20 ML SDV ONE; +fentaNYL 100 MCG/2 ML SDV ONE
--- NOTE | 2020-08-31 08:58 | PCM.PREANE ---
Preanesthetic Assessment - Procedure Proposed Procedure: Diagnostic EGD - Anesthesia/Transfusion/Family Hx Anesthesia History: Prior Anesthesia Without Reaction Family History of Anesthesia Reaction: No Transfusion History: No Prior Transfusion(s) - Review of Systems General: No Symptoms Pulmonary: No Symptoms Cardiovascular: No Symptoms Gastrointestinal: No Symptoms Neurological: Numbness ("a little bit in fingers and toes") Other: Reports: Diabetes (87 check at 0851) - Physical Assessment NPO Status Date: 08/30/20 NPO Status Time: 00:00 Height: 1.75 m Weight: 97.7 kg ASA Class: 3 Mental Status: Alert & Oriented x3 Airway Class: Mallampati = 3 Dentition: Reports: [place](s) Thyro-Mental Finger Breadths: 1 Mouth Opening Finger Breadths: 2 ROM/Head Extension: Full Lungs: Clear to Auscultation, Normal Respiratory Effort Cardiovascular: Regular Rate, Regular Rhythm - Lab Values: Laboratory Last Values SARS-CoV-2 (PCR) Not detected (NOT DETECT) 08/28/20 10:06 - Allergies Allergies/Adverse Reactions: Allergies Allergy/AdvReac Type Severity Reaction Status Date / Time Penicillins Allergy Hives Verified 08/30/20 15:58 - Blood Blood Available: No Product(s) Available: None - Anesthesia Plan Pre-Op Medication Ordered: None - Acknowledgements Anesthesia Type Planned: MAC Pt an Appropriate Candidate for the Planned Anesthesia: Yes Alternatives and Risks of Anesthesia Discussed w Pt/Guardian: Yes Pt/Guardian Understands and Agrees with Anesthesia Plan: Yes PreAnesthesia Questionnaire HEENT History: Reports: Impaired Vision Other HEENT History: glasses Cardiovascular History: Reports: High Cholesterol, Hypertension Other Cardiovascular History: Abnormal EKG, hypomagnesemia, history of chest pain Respiratory History: Reports: PE, Sleep Apnea, Other (See Below) Other Respiratory History: Acute bronchitis Gastrointestinal History: Reports: GERD, Other (See Below) Other Gastrointestinal History: Acute RLQ pain, LUQ pain, ventral hernia Genitourinary History: Reports: Other (See Below) Other Genitourinary History: prostatism, erectile dysfunction CUMULATIVE EFFECTS ANALYST History: Reports: None Musculoskeletal History: Reports: Fracture Other Musculoskeletal History: Muscle cramps, closed fracture one rib on left side Neurological History: Reports: Neuropathy, Diabetic, Other (See Below) Other Neuro History: Tingling of both feet Psychiatric History: Reports: Other (See Below) Other Psychiatric History: Insomnia Endocrine/Metabolic History: Reports: Diabetes, Type II, Obesity/BMI 30+, Vitamin D Deficiency Other Endocrine/Metabolic History: Fatigue Hematologic History: Reports: Anemia, Bleeding Disorder Other Hematologic History: Factor V Leiden Immunologic History: Reports: None Oncologic (Cancer) History: Reports: None Other Dermatologic History: Skin lesion left leg, dermatitis to lower extremity - Infectious Disease History Infectious Disease History: Reports: Chicken Pox, Measles - Past Surgical History Head Surgeries/Procedures: Reports: None HEENT Surgical History: Reports: Tonsillectomy Other HEENT Surgeries/Procedures: Correction of left lazy eye at 4 years old Cardiovascular Surgical History: Reports: None Respiratory Surgical History: Reports: None GI Surgical History: Reports: Appendectomy, Colonoscopy Other GI Surgeries/Procedures: Ventral hernia repair Female Surgical History: Reports: None Male Surgical History: Reports: None Endocrine Surgical History: Reports: None Neurological Surgical History: Reports: None Musculoskeletal Surgical History: Reports: None Oncologic Surgical History: Reports: None Dermatological Surgical History: Reports: None - SUBSTANCE USE Tobacco Use Status *Q: Never Tobacco User Tobacco Use Within Last Twelve Months: No Second Hand Smoke Exposure: No Days Per Week of Alcohol Use: 1 Number of Drinks Per Day: 1 Total Drinks Per Week: 1 Recreational Drug Use History: No - HOME MEDS Home Medications: Home Meds Aspirin [Ecotrin] 325 mg PO DAILY 03/21/16 [History] Insulin Detemir [Levemir] 70 unit SUBCUT BID 03/21/16 [History] Dulaglutide [Trulicity] 1.5 mg INJECT VICENTE 11/04/18 [History] Multivitamin [Multivitamins] 1 cap PO DAILY 11/04/18 [History] Cholecalciferol (Vitamin D3) [Vitamin D3] 10,000 unit PO DAILY 02/02/19 [History] Cyanocobalamin (Vitamin B12) [Vitamin B13] 500 mcg PO DAILY 02/02/19 [History] Fenofibric Acid (Choline) [Fenofibric Acid] 45 mg PO DAILY 02/02/19 [History] Lisinopril/Hydrochlorothiazide [Lisinopril-Hctz 20-12.5 mg Tab] 1 tab PO DAILY 02/02/19 [History] Magnesium 250 mg PO DAILY 02/02/19 [History] DULoxetine [Cymbalta] 60 mg PO DAILY 08/30/20 [History] Insulin Lispro [HumaLOG] 26 units SQ BID 08/30/20 [History] Omeprazole 40 mg PO DAILY 08/30/20 [History] Tadalafil [Cialis] 10 mg PO ASDIRECTED PRN 08/30/20 [History] Triamcinolone Acetonide 1 dose TOP DAILY PRN 08/30/20 [History] atorvaSTATin [Lipitor] 80 mg PO DAILY 08/30/20 [History] metFORMIN HCl [Metformin HCl] 1,000 mg PO BID 08/30/20 [History] - CURRENT (IN HOUSE) MEDS Current Meds: Current Medications Lactated Ringer's (Ringers, Lactated) 1,000 mls @ 125 mls/hr IV ASDIRECTED REYNA Stop: 08/31/20 23:00 Lidocaine/Sodium Bicarbonate (Buffered Lidocaine 1% In Ns 8.4%) 0.25 ml IDERM ONETIME PRN PRN Reason: Prior to IV Start Stop: 08/31/20 18:00 Sodium Chloride (Saline Flush) 10 ml FLUSH ASDIRECTED PRN PRN Reason: Keep Vein Open Stop: 08/31/20 18:00
--- NOTE | 2020-08-31 09:53 | PCM48HPAN ---
Post Anesthesia Note - EVALUATION WITHIN 48HRS OF ANESTHETIC Vital Signs in Normal Range: Yes Patient Participated in Evaluation: Yes Respiratory Function Stable: Yes Airway Patent: Yes Cardiovascular Function Stable: Yes Hydration Status Stable: Yes Pain Control Satisfactory: Yes Nausea and Vomiting Control Satisfactory: Yes Mental Status Recovered: Yes Vital Signs: Last Vital Signs Temp 36.0 C L 08/31/20 09:07 Pulse 90 08/31/20 09:07 Resp 20 08/31/20 09:07 BP 130/70 08/31/20 09:07 Pulse Ox 96 08/31/20 09:07
[2020-08-31 11:52] VITALS: BP 104/69; PULSE 82
--- NOTE | 2020-08-31 11:52 | PCM.PRNOTE ---
- Free Text/Narrative Note: Date: 08/31/2020 Procedure: diagnostic esophagogastroduodenoscopy Endoscopist: Syed Antonio MD Findings: large amount of food in stomach. Normal Z-line without findings of esophagitis. Detailed Report: The patient was taken to the endoscopy suite and placed in left lateral decubitus position. Monitored anesthesia care was initiated, and a bite-block was placed. The endoscope was inserted into the mouth and advanced into the stomach. There was a large amount of gross particulate food matter in the stomach. This confirmed suspicion of diabetic gastroparesis. Due to diagnostic finding and concern for potential aspiration, the scope was withdrawn into the esophagus. The Z-line appeared normal, there was no evidence of gross inflammation of the esophageal mucosa. No biopsies were obtained. The air was suctioned from the stomach, and scope withdrawn. The patient tolerated the procedure well. Plan: Erythromycin prescribed for diabetic gastroparesis.
== END | disposition home or self-care (01) ==
LOC: JD.SDS 08:31
PROVIDERS: ATTEND Surgery
DX: E11.43 Type 2 diabetes mellitus with diabetic autonomic (poly)neuropathy (principal); E11.40 Type 2 diabetes mellitus with diabetic neuropathy, unspecified; K21.9 Gastro-esophageal reflux disease without esophagitis; I10 Essential (primary) hypertension; E78.00 Pure hypercholesterolemia, unspecified; E66.9 Obesity, unspecified; E55.9 Vitamin D deficiency, unspecified; Z01.812 Encounter for preprocedural laboratory examination; Z20.828 Contact with and (suspected) exposure to other viral communicable diseases; Z88.0 Allergy status to penicillin; Z79.82 Long term (current) use of aspirin; Z79.899 Other long term (current) drug therapy; Z79.4 Long term (current) use of insulin; Z98.890 Other specified postprocedural states; Z68.34 Body mass index [BMI] 34.0-34.9, adult
CPT/HCPCS: 00731; 82962; J2001; J2704; J3010; J7120; U0002